=== PATIENT | female | born 1970 | race Caucasian/White ===

== ENCOUNTER 2017-09-11 11:32 | Day surgery (SDC) | payer OTHER ==
[2017-09-11] MEDS ORDERED: LIDOCAINE 2% (SDV) 5 ML INJ (13:22)
[2017-09-11] MEDS ORDERED: MIDAZOLAM 1 MG/ML 2 ML INJ (13:22)
[2017-09-11] MEDS ORDERED: LIDOCAINE 4% SOLUTION 50 ML BTL (13:22)
[2017-09-11] MEDS ORDERED: PROPOFOL 20 ML (13:22)
== END 2017-09-11 17:16 | disposition home or self-care (01) ==
LOC: GIL 11:32
DX: K21.9 Gastro-esophageal reflux disease without esophagitis (principal)
CPT/HCPCS: 43239; 84703; 88305; 88312